=== PATIENT | male | born 1985 | race Caucasian/White ===

== ENCOUNTER 2021-11-06 12:27 | Emergency (ER) | payer OTHER, SELFPAY ==
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
[2021-11-06 12:31] VITALS: BP 135/82; PULSE 102; RESP 16; TEMP 36.8; O2SAT 100
[2021-11-06] MEDS: IBUPROFEN 600 MG TABLET PO (13:40)
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
[2021-11-06 14:31] VITALS: BP 125/71; PULSE 88; RESP 18; O2SAT 98
== END 2021-11-06 14:32 | disposition home or self-care (01) ==
PROVIDERS: Emergency Provider Emergency Medicine
DX: S39.92XA Unspecified injury of lower back, initial encounter (principal); S70.01XA Contusion of right hip, initial encounter; V68.5XXA Driver of heavy transport vehicle injured in noncollision transport accident in traffic accident, initial encounter
CPT/HCPCS: 72110; 73502; 99284; A9270